=== PATIENT | male | born 1995 | race Caucasian/White ===

== ENCOUNTER 2017-04-20 13:44 | Emergency (ER) | payer SELFPAY ==
[~2017-04-20] VITALS: Ht 187.9 cm; Wt 122.5 kg
[~2017-04-20 13:44] MED LIST: BACTRIM DS 8001 TA1 PO; CYCLOBENZAPRINE10 MG PO; HYDROCODONE BIT1 T11 PO; MEDROL DOSEPAK4 MG PO
[2017-04-20] MEDS ORDERED: Motrin,Rufen800 MG PO (15:01)
== END 2017-04-20 15:04 | disposition home or self-care (01) ==
LOC: ED 13:44
DX: S93.401A Sprain of unspecified ligament of right ankle, initial encounter (principal); Z79.899 Other long term (current) drug therapy; X50.1XXA Overexertion from prolonged static or awkward postures, initial encounter; Y93.67 Activity, basketball; Y92.89 Other specified places as the place of occurrence of the external cause; Y99.8 Other external cause status

== ENCOUNTER 2020-06-02 18:45 | Emergency (ER) | payer SELFPAY ==
[~2020-06-02] VITALS: Ht 187.9 cm; Wt 147.4 kg
[~2020-06-02 18:45] MED LIST changes: +Motrin,Rufen800 MG PO
[2020-06-02] MEDS ORDERED: AUGMENTIN 875875 MG PO (19:10)
== END 2020-06-02 19:20 | disposition home or self-care (01) ==
LOC: ED 18:45
DX: K02.9 Dental caries, unspecified (principal); J45.909 Unspecified asthma, uncomplicated; F17.200 Nicotine dependence, unspecified, uncomplicated; Z79.899 Other long term (current) drug therapy